=== PATIENT | female | born 1955 | race Caucasian/White ===

== ENCOUNTER → 2019-04-12 | Outpatient (CLI) | payer BC ==
--- NOTE | 2019-04-16 15:08 | MAM ---
EXAM DESCRIPTION: 3D Screening BILATERAL : Digital Mammography. CLINICAL HISTORY: 64 years Female ANNUAL SCREENING . No complaints. No personal or family history of breast cancer. Menarche age 15. No childbirth. Postmenopausal 15+ years. No HRT. Lifetime risk of developing breast cancer (Tyrer-Cuzick model)(%): 7.7. COMPARISON: Baseline study at this facility.. No prior reports available. TECHNIQUE: Bilateral CC and MLO projection full-field images, digital tomosynthesis mammographic technique. Bilateral digital 2-D full-field MLO images. CAD not available for tomosynthesis or 2-D images. FINDINGS: The breast parenchymal density pattern is: Heterogeneously dense breast tissue, which may obscure small masses. No skin thickening or nipple retraction. Bilateral skin moles indicated by skin markers, more on the right. Right axillary lymph nodes. Bilateral solitary microcalcifications. Architectural distortion posterior third of the right breast 9:30 clock position 5 cm from the nipple. No new focal, stellate mass or density, focal asymmetry , and no suspicious microcalcifications left breast. IMPRESSION: BI-RADS CATEGORY: 0 - INCOMPLETE- Need additional imaging evaluation. FOLLOW-UP: Recall for additional imaging: Digital full field LM 2-D and tomosynthesis images. Digital Spot compression 2-D and tomosynthesis CC projection. Directed right breast ultrasound region of interest. Written communication concerning the IMPRESSION and Follow-up, will be mailed to the patient and referring health care provider. Electronically signed by: Tae Cunningham MD 04/16/2019 3:06 PM CDT
== END ==
LOC: MAMMO 10:39
DX: Z12.31 Encounter for screening mammogram for malignant neoplasm of breast (principal)

== ENCOUNTER → 2019-04-25 | Outpatient (CLI) | payer BC ==
--- NOTE | 2019-04-26 15:12 | MAM ---
EXAM DESCRIPTION: 3D Diagnostic, Right: Digital Mammography CLINICAL HISTORY: 64 yearsFemaleABN MAMMO focal asymmetry posterior superior right breast. COMPARISON: Bilateral screening digital breast tomosynthesis 04/12/2019.. . TECHNIQUE: Right breastLM projection full-field images, and LM and CC spot compression, digital mammographic tomosynthesis technique. Right breast 2-D digital full-field LM and CC images, and CC projections with spot compression.. CAD not available. FINDINGS: Right breast parenchymal density pattern is: Heterogeneously dense breast tissue, which may obscure small masses. No skin thickening or nipple retraction skin moles are seen. No focal asymmetry. Coarse calcifications. No new focal, stellate mass or density, focal asymmetry , and no suspicious microcalcifications right breast IMPRESSION: Benign exam. Fibroglandular tissues. BIRAD CATEGORY: 2 BENIGN FINDINGS. RECOMMENDATIONS: FOLLOW UP: Return to routine digital bilateral mammographic screening, one year interval from April 2019. Written communication explaining the IMPRESSION and follow-up, will be mailed to the patient and referring health care provider. The FINDINGS and the FOLLOW-UP plan were reviewed in person with the patient by the rehabilitation engineer, after the examination. According to the [employer], yearly mammograms are recommended starting at age 40 and continuing as long as a woman is in good health. Any breast change noted on a breast self-exam should be reported promptly to the patient's healthcare provider. Breast MRI is recommended for women with an approximately 20-25% or greater lifetime risk of breast cancer, including women with a strong family history of breast or ovarian cancer and women who have been treated for Hodgkin's disease. A negative mammographic report should not delay tissue diagnosis in patients with significant clinical history or physical findings. Extremely dense breast tissue limits the sensitivity of digital mammography. Electronically signed by: Tae Cunningham MD 04/26/2019 3:10 PM CDT
== END ==
LOC: MAMMO 12:30
DX: R92.2 Inconclusive mammogram (principal)
CPT/HCPCS: 77065; G0279

== ENCOUNTER → 2020-04-27 | Outpatient (CLI) | payer BC ==
--- NOTE | 2020-04-28 17:35 | MAM ---
EXAM DESCRIPTION: 3D Screening BILATERAL : Digital Mammography. CLINICAL HISTORY: 65 years Female ANNUAL SCREENING . No complaints. No family history breast cancer. Menarche age 15. No childbirth. Menopause age 47. No HRT.. Lifetime risk of developing breast cancer (Tyrer-Cuzick model)(%): 7.7. COMPARISON: Bilateral screening digital breast tomosynthesis and diagnostic digital breast tomosynthesis April 2019. TECHNIQUE: Bilateral CC and MLO projection full-field images, digital tomosynthesis mammographic technique. Bilateral digital 2-D full-field MLO images. CAD available for 2-D images. FINDINGS: The breast parenchymal density pattern is: Heterogeneously dense breast tissue, which may obscure small masses. No skin thickening or nipple retraction. Coarse calcifications and solitary microcalcifications. Vascular calcifications. No new focal, stellate mass or density, focal asymmetry , and no suspicious microcalcifications bilaterally. Stable mammograms compared to prior study. IMPRESSION: Benign exam. BIRAD CATEGORY: 2 BENIGN FINDINGS. RECOMMENDATIONS: FOLLOW UP: Routine digital bilateral mammographic screening, one year interval from April 2020. Written communication explaining the IMPRESSION and follow-up, will be mailed to the patient and referring health care provider. According to the [employer], yearly mammograms are recommended starting at age 40 and continuing as long as a woman is in good health. Any breast change noted on a breast self-exam should be reported promptly to the patient's healthcare provider. Breast MRI is recommended for women with an approximately 20-25% or greater lifetime risk of breast cancer, including women with a strong family history of breast or ovarian cancer and women who have been treated for Hodgkin's disease. A negative mammographic report should not delay tissue diagnosis in patients with significant clinical history or physical findings. Extremely dense breast tissue limits the sensitivity of digital mammography. Electronically signed by: Tae Cunningham MD 04/28/2020 5:34 PM CDT
== END ==
LOC: MAMMO 13:29
PROVIDERS: ATTEND Obstetrics & Gynecology
DX: Z12.31 Encounter for screening mammogram for malignant neoplasm of breast (principal)